=== PATIENT | male | born 1990 | race Caucasian/White ===

== ENCOUNTER → 2016-12-15 17:31 | Emergency (ER) | payer SELFPAY ==
[~2016-12-15] VITALS: Ht 185.4 cm; Wt 76.4 kg
[2016-12-15 17:39] VITALS: BP 134/74; PULSE 92; RESP 14; TEMP 98; O2SAT 97
== END | disposition left against medical advice (07) ==
LOC: NED 17:31
DX: Z02.89 Encounter for other administrative examinations (principal)
CPT/HCPCS: 99281